=== PATIENT | female | born 1965 | race Caucasian/White ===

== ENCOUNTER → 2016-09-01 | Outpatient (CLI) | payer BC ==
[2016-09-01 07:41] LABS: BUN/CREATININE RATIO 14 (0-10)
== END ==
LOC: LAB 06:57
PROVIDERS: Internal Medicine Cardiovascular Disease
DX: I20.9 Angina pectoris, unspecified (principal); E78.5 Hyperlipidemia, unspecified
CPT/HCPCS: 36415; 80048; 80061; 80076; 84439; 84443; 84481

== ENCOUNTER → 2016-09-01 | Outpatient (CLI) | payer BC | LOC: HEART 5 07:18 | DX: I20.9 Angina pectoris, unspecified (principal) | CPT/HCPCS: 78452; 93306; A9502 ==

== ENCOUNTER → 2021-05-14 | Outpatient (CLI) | payer BC | LOC: MAMO 14:22 | DX: Z12.31 Encounter for screening mammogram for malignant neoplasm of breast (principal) | CPT/HCPCS: 77063; 77067 ==

== ENCOUNTER → 2021-06-04 | Outpatient (CLI) | payer BC ==
[2021-06-04 07:50] LABS: HEMOGLOBIN 14.6 gm/dl (12.3-15.3); RED BLOOD COUNT 4.98 M/UL (4.00-5.10); WHITE BLOOD COUNT 4.1 K/UL (4.5-11.0)
[2021-06-04 08:24] LABS: BUN/CREATININE RATIO 17 (0-10)
== END ==
LOC: LAB 07:14
PROVIDERS: Family Medicine
DX: E78.5 Hyperlipidemia, unspecified (principal)
CPT/HCPCS: 36415; 80053; 80061; 84443; 85027